=== PATIENT | female | born 1985 | race Two or more races ===

== ENCOUNTER 2017-06-25 09:50 | Observation (INO) | payer BC ==
[~2017-06-25] VITALS: Ht 167.6 cm; Wt 57.6 kg
[2017-06-25] VITALS (9 sets, daily range): BP systolic 88–109; BP diastolic 44–63
[~2017-06-25 09:50] MED LIST: cefOXitin Sod 2 GM in D5W 110 ML IVPB ONE
[2017-06-25] MEDS ORDERED: Bupivacaine 0.5% Inj 30 ml vial INJ ONE (10:11)
[2017-06-25] MEDS ORDERED: Ropivacaine 5mg/ml Vial 20ml INJ ONE (10:11)
[2017-06-25] MEDS ORDERED: cefOXitin 1gm Inj ONE (10:11)
[2017-06-25] MEDS ORDERED: NKM (10:40)
[2017-06-25] MEDS ORDERED: Metoclopramide 10mg/2ml Inj IVP PRN (11:15)
[2017-06-25] MEDS ORDERED: Hydromorphone 0.5mg/0.5ml inj IVP PRN (11:15)
[2017-06-25] MEDS ORDERED: Acetaminophen (Non formulary) 100 ML IV ONE (11:15)
[2017-06-25] MEDS ORDERED: fentaNYL 100 mcg/2 mL IV PRN (11:15)
[2017-06-25] MEDS ORDERED: Meperidine 25mg/0.5ml Inj (FOR RIGORS ONLY) IV PRN (11:15)
[2017-06-25] MEDS ORDERED: Ketorolac 30mg Inj ONE (11:30)
[2017-06-25] MEDS ORDERED: Zemuron 50mg/5ml Inj IV ONE (11:30)
[2017-06-25] MEDS ORDERED: NS Irrig 1000ml IRRIG ONE (11:30)
[2017-06-25] MEDS ORDERED: Metoclopramide 10mg/2ml Inj ONE (11:30)
[2017-06-25] MEDS ORDERED: NS 110ml ONE (11:30)
[2017-06-25] MEDS ORDERED: NS Irrig 1000ml ONE (11:30)
[2017-06-25] MEDS ORDERED: Lidocaine 1% MPF 10mg/ml 5ml ONE (11:30)
[2017-06-25] MEDS ORDERED: Morphine Sulfate 10mg/ml Inj ONE (11:30)
[2017-06-25] MEDS ORDERED: Neostigmine 1mg/ml 10ml Inj ONE ×2 (11:30→12:40)
[2017-06-25] MEDS ORDERED: Dexamethasone 4mg/ml vial ONE (11:30)
[2017-06-25] MEDS ORDERED: Sterile Water Irrig 1000ml IRRIG ONE (11:30)
[2017-06-25] MEDS ORDERED: Midazolam 2mg/2ml Inj ONE (11:30)
[2017-06-25] MEDS ORDERED: LR 1000ml ONE (11:30)
[2017-06-25] MEDS ORDERED: Glycopyrrolate 0.2mg/ml 1ml Vial ONE (11:30)
[2017-06-25] MEDS ORDERED: Propofol 200mg/20ml IV ONE (11:33)
--- NOTE | 2017-06-25 11:37 | Pre-Procedure Note/Attestation ---
Pre-Procedure Note/Attestation Complete Prior to Procedure Planned Procedure: not applicable Procedure Narrative: myomectomy Indications for Procedure Pre-Operative Diagnosis: symptomatic fibroid Attestation I attest that I discussed the nature of the procedure; its benefits; risks and complications; and alternatives (and the risks and benefits of such alternatives ), prior to the procedure, with the patient (or the patient's legal sales representative facility services). I attest that, if there was a reasonable possibility of needing a blood transfusion, the patient (or the patient's legal sales representative facility services) was given the [facility] standardized written summary, pursuant to the Chris Addy Blood Safety Act ([place] Health and Safety Code # 1645, as amended). I attest that I re-evaluated the patient just prior to the surgery and that there has been no change in the patient's H&P, except as documented below: JOE BAIN Jun 25, 2017 11:37
[2017-06-25] MEDS ORDERED: Norco 5mg/325mg tab ORAL PRN (11:45)
[2017-06-25] MEDS ORDERED: Tylenol #3 tab (300mg/30mg) ORAL PRN (11:45)
[2017-06-25] MEDS ORDERED: HYDROmorphone 1mg/ml Carpuject SUBQ PRN (11:45)
--- NOTE | 2017-06-25 12:40 | History and Physical Report ---
DATE OF ADMISSION: 06/25/2017 PREOPERATIVE DIAGNOSIS: Symptomatic uterine fibroid. History Of Present Illness: The patient is a 31-year-old G2, P2, who has been followed by me since November 2011. She has had two normal vaginal deliveries with me. She presented in November 2016 complaining of dysmenorrhea and was discovered to have an intramural uterine fibroid. She was asked to return in four months to assess for growth. Again, she returned in March 2017 complaining of pelvic pain and dysparunia. Surgery was discussed as well as risk factor management as well as noninvasive modalities such as fibroid embolization was discussed. The patient would potentially like to have another baby and opted to have a myomectomy. On exam, she has a 5-cm uterine fibroid, which was increased in size from original presentation. Past Medical History: Significant for two vaginal deliveries and multiple plastic surgeries. PAST SURGICAL HISTORY: As above. ALLERGIES: None. Social History: The patient does not drink or smoke. She lives with her and two young sons. PHYSICAL EXAMINATION: Vital Signs: Height 6 feet 6 inches, weight 127, blood pressure 108/60, respiratory rate 18, temperature 97.8, and heart rate 72. HEAD AND NECK: Pupils are equal and reactive to light. LUNGS: Clear to auscultation bilaterally. CARDIAC: Regular rate and rhythm. BREASTS: No dominant masses. No axillary adenopathy. ABDOMEN: Soft, nondistended, and nontender. Pelvic: Consistent with a 10-week fibroid uterus with intramural fibroid. No adnexal masses. RECTAL: No masses. EXTREMITIES: No cords. No cyanosis. No edema. Laboratory And Diagnostic Data: Performed on 06/19/2017, white count 3.8, hemoglobin 12.9, hematocrit 39.3, and platelets 189,000. PT 12 and PTT 30. Negative test. Assessment: A 31-year-old 2, para 2 with an intramural fibroid that is symptomatic with dysmenorrhea and pain. PLAN: Plan is for exploratory laparotomy and myomectomy. Ayse Lane M.D. DR: Nick JOB#: [id number] CC: GABRIELA
--- NOTE | 2017-06-25 13:25 | Brief Operative Note ---
Immediate Post Operative Note Operative Note Pre-op Diagnosis: symptomatic fibroid Procedure: myomectomy Post-op Diagnosis: same/ degenerating fibroid Surgeon: suraj Cna Instructor: brook Anesthesia: general Specimen: yes Complications: none Condition: stable Fluids: 1l Estimated Blood Loss: volume - 200cc Drains: none Implant(s) used?: No JOE BAIN Jun 25, 2017 13:25
--- NOTE | 2017-06-25 13:34 | Immediate Post-Op Evaluation ---
Immediate Post-Op Evalulation Immediate Post-Op Evalulation Procedure: open myomectomy Date of Evaluation: Jun 25, 2017 Time of Evaluation: 13:34 IV Fluids: 800 Blood Products: 0 Estimated Blood Loss: 200 Urinary Output: 400 Blood Pressure Systolic: 106 Blood Pressure Diastolic: 67 Pulse Rate: 45 Respiratory Rate: 14 O2 Sat by Pulse Oximetry: 100 Temperature (Fahrenheit): 99.1 Nausea: No Vomiting: No Complications none Patient Status: awake, reacts, patent Hydration Status: adequate Drug: cefoxitin Given Within 1 Hr of Incision: Yes ISABEL LAND CRNA Jun 25, 2017 13:34
--- NOTE | 2017-06-25 13:36 | Anethesia Preoperative Eval ---
Anesthesia Pre-op PMH/ROS General Date of Evaluation: Jun 25, 2017 Time of Evaluation: 11:20 Anesthesiologist: tammy ASA Score: ASA 1 Mallampati Score Class I : Soft palate, uvula, fauces, pillars visible Class II: Soft palate, uvula, fauces visible Class III: Soft palate, base of uvula visible Class IV: Only hard plate visible Mallampati Classification: Class II Surgeon: suraj Diagnosis: uterine fibroids Surgical Procedure: open myomectomy Anesthesia History: none Family History: no anesthesia problems Allergies: Uncoded Allergies: allergic to the glue under the tape (Allergy, Severe, 06/24/17) rashes/blisters Past Medical History Cardiovascular: Denies: HTN, CAD, PA, valve dz, arrhythmia, other Pulmonary: Denies: asthma, COPD, WES, other Gastrointestinal/Genitourinary: Denies: GERD, CRI, ESRD, other Neurologic/Psychiatric: Denies: dementia, CVA, depression/anxiety, TIA, other Endocrine: Denies: DM, hypothyroidism, steroids, other HEENT: Denies: cataract (L), cataract (R), glaucoma, [place] (L), [place] (R), other Hematology/Immune: Denies: anemia, DVT, bleeding disorder, other Musculoskeletal/Integumentary: Denies: OA, RA, DJD, DDD, edema, other PSxH Narrative: rhinoplasty Anesthesia Pre-op Phys. Exam Physician Exam Last Vital Signs Date Time Temp Pulse Resp B/P (MAP) Pulse Ox O2 Delivery O2 Flow Rate FiO2 06/25/17 10:40 97.9 58 19 99/63 100 Room Air Constitutional: NAD Neurologic: CN 2-12 intact Cardiovascular: RRR Respiratory: CTA Gastrointestinal: S/NT/ND Airway Exam Mallampati Score: Class II MO: full TMD: 2fb ROM: full Dentures: no upper, no lower Anesthesia Pre-op A/P Labs Urine Test Test 06/25/17 10:10 Urine HCG, Qualitative Negative Risk Assessment & Plan Plan: general Status Change Before Surgery: No Pre-Antibiotics Drug: cefoxitin Given Within 1 Hr of Incision: Yes ISABEL LAND CRNA Jun 25, 2017 13:36
--- NOTE | 2017-06-25 13:57 | 48 Hour Post Anesthesia Eval ---
Post Anesthesia Evaluation Procedure: open myomectomy Date of Evaluation: Jun 25, 2017 Time of Evaluation: 13:57 Blood Pressure Systolic: 93 0: 55 Pulse Rate: 67 Respiratory Rate: 14 O2 Sat by Pulse Oximetry: 100 Airway: patent Nausea: No Vomiting: No Hydration Status: adequate Cardiopulmonary Status: stable Mental Status/LOC: patient returned to baseline Follow-up Care/Observations: per surgery Post-Anesthesia Complications: none Follow-up care needed: N/A ISABEL LAND CRNA Jun 25, 2017 13:57
[2017-06-25] MEDS ORDERED: D5 1/2NS 1,000 ML IV SCH (16:00)
[2017-06-25 17:34] LABS: MEAN CORPUSCULAR HEMOGLOBIN 32.5 PG (27.0-31.0); MEAN CORPUSCULAR HGB CONC 35.2 G/DL (32.0-36.0); MEAN CORPUSCULAR VOLUME 92 FL (80-99); PLATELET COUNT 156 K/UL (150-450); RED BLOOD COUNT 3.55 M/UL (4.20-5.40); RED CELL DISTRIBUTION WIDTH 11.3 % (11.6-14.8); WHITE BLOOD COUNT 7.3 K/UL (4.8-10.8)
[2017-06-25 17:35] LABS: BASOPHILS % (AUTO) 0.4 % (0.0-2.0); EOSINOPHILS % (AUTO) 0.1 % (0.0-3.0); MONOCYTES % (AUTO) 2.2 % (1.0-10.0); NEUTROPHILS % (AUTO) 91.3 % (45.0-75.0)
[2017-06-25] MEDS ORDERED: IBUPROFEN600 MG ORAL (19:47)
[2017-06-25] MEDS ORDERED: NORCO 5-325 TA1 EAC1 ORAL (19:48)
[2017-06-25] MEDS ORDERED: D5 1/2NS 1000ml IV ONE (20:34)
--- NOTE | 2017-06-26 00:30 | Operative Note - Dictated ---
DATE OF OPERATION: 06/25/2017 PROCEDURE: Myomectomy PREOPERATIVE DIAGNOSIS: Symptomatic uterine fibroid. Postoperative Diagnoses: Symptomatic uterine fibroid and fatty degeneration of leiomyoma. ESTIMATED BLOOD LOSS: 200 mL. SURGEON: Ayse Lane M.D. GORING CUTTER: Mariann Choudhury M.D. URINE OUTPUT: 400 mL clear urine. COMPLICATIONS: None. FINDINGS: Fundal 5 cm fibroid. Normal tubes and ovaries. ANESTHESIA: General endotracheal. Procedure In Detail: After ensuring informed consent, the patient was taken to the operating room where general anesthesia was induced. The patient was sterilely prepped and draped. A small incision was made in the same place as prior incision from abdominoplasty approximately 5 cm in length. It was carried down to the level of the fascia with the Bovie. The fascia was nicked in the midline and the incision was extended laterally. Fascia was tented up with Kochers and both bluntly and sharply dissected off of the underlying rectus muscles. The rectus muscles were parted in the midline. Peritoneum was identified and entered. The peritoneal incision was extended superiorly and inferiorly. The uterus was identified. Fibroid was palpated, brought into the incision, injected with dilute solution of Pitressin. Uterine serosa and myometrium over the fibroid was incised and fibroid was removed in pieces. Next, the fibroid bed was repaired with #0 Vicryl on a UR needle in multiple layers until excellent hemostasis was assured. Serosa was repaired with 3-0 Vicryl. The pelvis was copiously irrigated. The peritoneum was closed with 2-0 Vicryl. Muscles were approximated with 2-0 Vicryl. Fascia was closed with #0 Vicryl. Subcutaneous tissue was closed with 3-0 plain and skin was closed with 3-0 Monocryl on a Julio C needle. At the end of the procedure, all instrument and laps were correct x2. The patient was taken to the recovery area, extubated, and in stable condition. Ayse Lane M.D. DR: Nick JOB#: [id number] CC: GABRIELA
--- NOTE | 2017-06-26 13:11 | Discharge Summary ---
Discharge Summary Hospital Course Date of Admission Jun 25, 2017 at 09:50 Date of Discharge Jun 25, 2017 at 20:35 Admitting Diagnosis HPI Nunu Stevens is a 31 year old female who was admitted on Jun 25, 2017 at 09: 50 for Uterine Fibroids Hospital Course [id number] Discharge Discharge Disposition Patient was discharged to Home (01) Discharge Diagnoses: Kayla Jama NP Jun 26, 2017 13:11
--- NOTE | 2017-06-27 06:02 | Discharge Summary 2 SIG ---
DATE OF ADMISSION: 06/25/2017 DATE OF DISCHARGE: 06/25/2017 Brief Hospital Course: The patient is a 31-year-old, G2, P2, who had a prior normal vaginal deliveries x2, presented on November 2016 complaining of dysmenorrhea. She was discovered to have an intramural uterine fibroid and was asked to return for reassessment of growth. She returned back on March 2017 complaining of pelvic pain. Surgical and noninvasive modalities such as fibroid embolization was discussed. The patient would potentially like to have another baby and opted to have myomectomy. On examination, she had a 5 cm uterine fibroid, which was increased to plus 30 cm from original presentation. On 06/25/2017, she underwent exploratory laparotomy with myomectomy. Postoperatively, she was admitted to medical floor and was given IV hydration and pain management. Diet was advanced as tolerated. Strickland catheter was eventually removed and the patient was discharged postvoid. She was eventually discharged home. Advised to follow-up as outpatient. Final Diagnoses: Symptomatic uterine fibroid and fatty degeneration of leiomyoma. Ayse Lane M.D. I have been assigned to dictate discharge summary on this account and I was not involved in the patient's management. Kayla Jama N.P. DR: PHYLICIA JOB#: [id number] CC: GABRIELA
== END 2017-06-25 20:35 | disposition home or self-care (01) ==
LOC: INTOOBSV 09:50 → SDSOVERFLO 09:50 → 3E 14:56
DX: D25.9 Leiomyoma of uterus, unspecified (principal)
CPT/HCPCS: 36415; 58140; 81025; 85025; 86850; 86900; 86901; 87081; 96360; 96361; 96375; G0378; J0694; J1100; J1885; J2250; J2270; J2405; J2704; J2710; J2765; J2795; J7120; 94003; 94150